=== PATIENT | female | born 1935 | race Caucasian/White ===

== ENCOUNTER 2020-02-15 09:57 | Emergency (ER) | payer MEDICARE, OTHER, MEDICAID ==
[2020-02-15 10:34] LABS: Bilirubin Negative (Negative); Blood, Urine Negative (Negative); Clarity Clear (Clear); Glucose, Urine (Dipstick) Normal (Negative); Ketone, Urine Negative (Negative); Leukocyte Negative Leu/uL (Negative); Nitrite Negative (Negative); Protein, Urine (Dipstick) Negative (Neg-Trace); Specific Gravity, Urine 1.019 (1.002-1.036); Urobilinogen Normal mg/dL (Less than 2); pH, Urine 5.5 (5.0-9.0)
[2020-02-15 10:56] LABS: Hemoglobin 12.7 g/dL (12.0-16.0); Mean Corpuscular Hemoglobin 28.5 pg (27.0-31.0); Mean Corpuscular Volume 92.1 fL (78.0-98.0); Red Blood Cell (RBC) Count 4.47 mill/uL (4.20-5.40); White Blood Cell (WBC) Count 3.4 thou/uL (4.8-10.8)
[2020-02-15 11:09] LABS: #Lymphocytes 0.9 thou/uL (1.20-3.40); #Monocytes 0.2 thou/uL (0.11-0.59); #Neutrophils 2.2 thou/uL (1.40-6.50); %Basophils 0.3 % (0.0-1.0); %Lymphocytes 27.1 % (21.0-51.0); %Monocytes 6.5 % (0.0-10.0); %Neutrophils 65.2 % (42.0-75.0); MDiff Complete? YES; Mean Platelet Volume 11.1 fL (7.4-10.4); Platelet Count 104 thou/uL (130-400); Platelet Morphology Comment Appears Decreased; Polychromasia SLIGHT = 2-3 cells (100X) (0-2/hpf); RBC Distribution Width 12.4 % (11.5-14.5)
[2020-02-15 11:13] LABS: ALT (SGPT) 16 U/L (8-55); AST (SGOT) 31 U/L (5-34); Albumin 3.9 g/dL (3.4-4.8); Alkaline Phosphatase 99 U/L (40-110); Anion Gap 14 mmol/L (10-20); BUN (Urea Nitrogen) 9 mg/dL (9.8-20.1); Bilirubin, Total 0.6 mg/dL (0.2-1.2); Calc. Creatinine Clearance 0 mL/min (70-130); Calcium 9.2 mg/dL (7.8-10.44); Carbon Dioxide 27 mmol/L (23-31); Chloride 104 mmol/L (98-107); Estimated GFR-MDRD 53; Glucose 97 mg/dL (83-110); Lipase 37 U/L (8-78); Protein, Total 6.9 g/dL (6.0-8.3); Sodium 141 mmol/L (136-145)
--- NOTE | 2020-02-15 12:25 | CT ---
CT OF THE ABDOMEN AND PELVIS WITH IV CONTRAST: Date: 02/15/2020 INDICATION: History of right lower quadrant and left lower quadrant abdominal pain for the last 1-2 months. COMPARISON: None. FINDINGS: Lung bases are clear. No focal hepatic lesion is evident. The gallbladder is surgically absent. The pancreas, adrenal glands, and spleen appear within normal limits. There is mild renal cortical th inning bilaterally. There is a 1.6 cm complex cystic abnormality involving the posterior aspect of th e right mid kidney on image 42 of series 2. There are mild vascular calcifications involving the abdominal aorta. There is colonic diverticulosis. There is a moderate amount of retained stool within the colon. Small bowel is normal appearing. The bladder, rectum, and perirectal soft tissues are unremarkable appearing. No definite acute osseous abnormality is evident. There is an age-indeterminate superior end plate co mpression abnormality of L1. IMPRESSION: 1. Complex cystic lesion involving the posterior aspect of the right mid kidney requires further lucy luation. Recommend a CT or MRI of the abdomen utilizing renal mass protocol for additional characteri zation. 2. Cholecystectomy. 3. Colonic diverticulosis. 4. Age-indeterminate superior end plate compression fracture of L1. Bone scan may be helpful to eval uate acuity. CODE T. POS: BH
== END 2020-02-15 14:14 | disposition home or self-care (01) ==
LOC: ERS 09:57
DX: N28.89 Other specified disorders of kidney and ureter (principal); N28.1 Cyst of kidney, acquired; I10 Essential (primary) hypertension; F03.90 Unspecified dementia, unspecified severity, without behavioral disturbance, psychotic disturbance, mood disturbance, and anxiety; Z79.899 Other long term (current) drug therapy
CPT/HCPCS: 36415; 74177; 80053; 81003; 83690; 85025